=== PATIENT | male | born 1990 | race Two or more races ===

== ENCOUNTER 2016-10-20 16:15 | Emergency (ER) | payer SELFPAY ==
[~2016-10-20] VITALS: Ht 172.7 cm; Wt 81.6 kg
--- NOTE | 2016-10-20 16:20 | NUR ---
BIB [facility]. PT IS LETHARGIC, SLURRED SPEECH, MUMBLING. SMELLS LIKE "ALCOHOL". PER REPORT BY [facility], ANALYTICS LEAD CALLED, BECAUSE PT IS HIGHLY LETHARGIC BUT IS AROUSABLE WITH PAIN STIMULI. EYES ARE REACTIVE TO LIGHT. MD AT BEDSIDE PERFORMING MSE. EKG DONE AND SHOWN TO MD MCCLELLAND, NON-STEMI. WCTM PT AT THIS TIME. WAITING FOR FURTHER PLAN OF CARE.
[2016-10-20] MEDS ORDERED: IV NORMAL SALINE 1000 ML BAG IV ONE (16:30)
[2016-10-20 16:42] LABS: BASOPHILS % (AUTO) 0.4 % (0.0-2.0); EOSINOPHILS # (AUTO) 0.2 K/uL (0.0-0.7); EOSINOPHILS % (AUTO) 2.2 % (0.0-7.0); HEMATOCRIT 43.3 % (40-50); LYMPHOCYTES # (AUTO) 2.7 K/UL (0.8-4.8); LYMPHOCYTES % (AUTO) 33.1 % (20.5-51.5); MEAN CORPUSCULAR HEMOGLOBIN 30.6 UUG (27.0-31.0); MEAN CORPUSCULAR HGB CONC 35 g/dL (32.0-37.0); MEAN CORPUSCULAR VOLUME 88.7 FL (82.0-92.0); MONOCYTES # (AUTO) 0.5 K/UL (0.1-1.30); MONOCYTES % (AUTO) 6.5 % (0.0-11.0); NEUTROPHILS # (AUTO) 4.7 K/UL (1.8-8.9); NEUTROPHILS % (AUTO) 57.8 % (38.5-71.5); PLATELET COUNT (AUTO) 176 K/UL (150-450); RED BLOOD CELL COUNT(AUTO) 4.88 MIL/UL (4.7-6.1); WHITE BLOOD COUNT (AUTO) 8.1 K/UL (4.0-11.2)
[2016-10-20 16:47] LABS: CARBON DIOXIDE 24 mmol/L (21-32); CHLORIDE 110 mmol/L (98-107); CREATININE 0.9 mg/dL (0.6-1.3); GLUCOSE 96 mg/dL (74-106); POTASSIUM 3.5 mmol/L (3.5-5.1); UREA NITROGEN, BLOOD 7 mg/dL (7-18)
[2016-10-20 16:53] LABS: ALANINE AMINOTRANSFERASE 67 U/L (16-63); ALKALINE PHOSPHATASE 133 U/L (50-136); ASPARTATE AMINOTRANSFERASE 46 U/L (15-37); BILIRUBIN,DIRECT 0.1 mg/dL (0.0-0.2); BILIRUBIN,TOTAL 0.4 mg/dL (0.2-1.0); TOTAL PROTEIN, SERUM 7.8 g/dL (6.4-8.2)
[2016-10-20 16:54] LABS: ACETAMINOPHEN < 2.0 ug/mL (10-30); ETHANOL 338 MG/DL (0-0)
--- NOTE | 2016-10-20 17:40 | NUR ---
PT PULLED OUT IV ACCESS, MD MCCLELLAND IS AWARE.
--- NOTE | 2016-10-20 17:55 | NUR ---
DONNIE SANCHEZ CALLED. PT IS CURRENTLY COMBATIVE. ATTEMPTING TO LEAVE. PT REMAINS TO BE INTOXICATED AND IS UNSTABLE
--- NOTE | 2016-10-20 18:05 | NUR ---
SECURITY AT BEDSIDE
--- NOTE | 2016-10-20 18:14 | NUR ---
AMBULATORY TEST CURRENTLY BEING PERFORMED. PER MD, IF PT IS ABLE TO AMBULATE WITH STEADY GAIT. PT IS STABLE TO BE DISCHARGED
--- NOTE | 2016-10-20 18:18 | NUR ---
PT IS ABLE TO AMBULATE WITH NO ASSITS. [employer] Driver assited pt to the front of the hospital.Patient discharged to home in stable conditon. Written and verbal after care instructions given. Patient verbalizes understanding of instructions. No further questions or concerns noted prior on leaving the ED.
--- NOTE | 2016-10-20 18:20 | NUR ---
PT verbalized, "I'm going to take a LIFT home to my mother." Security accompanied pt
[2016-10-20 18:21] VITALS: BP 115/70
== END 2016-10-20 18:22 | disposition home or self-care (01) ==
LOC: ER 16:29
DX: F10.129 Alcohol abuse with intoxication, unspecified (principal)
CPT/HCPCS: 36415; 85025; 93005; A4663; G0480; G0480-TC